=== PATIENT | male | born 1975 | race Caucasian/White ===

== ENCOUNTER → 2016-03-31 | Outpatient (CLI) | payer BC, OTHER ==
--- NOTE | 2016-03-31 12:36 | DI ---
XR WRIST COMPLETE MIN 3VW,03/31/2016 12:18 PM: Clinical History: Left wrist pain Previous Exam: None at this facility. Findings: 3 views the left wrist are obtained, and demonstrate anatomic alignment without fractures. The surrou nding soft tissues are unremarkable. Impression: Normal left wrist.
== END ==
LOC: MOB RAD 12:19
PROVIDERS: ATTEND Physician Assistant
DX: M25.532 Pain in left wrist (principal); W18.09XA Striking against other object with subsequent fall, initial encounter; Y93.89 Activity, other specified; Y92.89 Other specified places as the place of occurrence of the external cause; Y99.0 Civilian activity done for income or pay
CPT/HCPCS: 73110

== ENCOUNTER → 2016-04-09 | Outpatient (CLI) | payer OTHER, BC ==
--- NOTE | 2016-04-10 12:12 | DI ---
MRI LEFT WRIST SCAN, 04/09/2016 8:01 AM: Clinical History: Injury to the wrist. Previous Exam: None at this facility. Technique: Axial, coronal, and sagittal PD; fat saturated PD. There is edema deep to the subcutaneous tissues over the dorsomedial surface of the wrist at the leve l of the proximal row carpal bones and between the extensor digiti minimi and extensor digitorum and extensor indicis tendons at the location where the triquetrotrapezial ligament is situated. Medial an d lateral to this location, the tendon has a normal signal pattern but at the site where there is hyp erintensity in the soft tissues, this ligament is hyperintense consistent with a partial tear or spra in of that ligament. No other volar or dorsal ligamentous abnormality is noted. The flexor and extens or tendons are intact. The triangular fibrocartilage as well as the scapholunate and lunatotriquetral ligaments are normal. Readin. There is hyperintensity in the triquetrotrapezial ligament on the dorsal surface between the exte nsor digiti minimi and the extensor digitorum and extensor indicis tendons are located. This hyperint ensity would be consistent with a partial tear or sprain of that ligament. 2. The remainder of the examination is otherwise normal.
== END ==
LOC: MRI 07:58
PROVIDERS: ATTEND Physician Assistant
DX: S69.92XA Unspecified injury of left wrist, hand and finger(s), initial encounter (principal); S63.592A Other specified sprain of left wrist, initial encounter; M25.532 Pain in left wrist; W19.XXXA Unspecified fall, initial encounter
CPT/HCPCS: 73221

== ENCOUNTER 2016-08-29 21:26 | Emergency (ER) | payer OTHER, BC ==
[2016-08-29 21:35] VITALS: RESP 16; TEMP 97.9
--- NOTE | 2016-08-29 22:10 | PDOC ---
Lower Extremity Injury HPI - General Chief Complaint: Lower Extremity Problem/Injury Stated Complaint: RIGHT KNEE GAVE OUT Date Seen by Provider: 08/29/16 Time Seen by Provider: 21:50 Source: POSITIVE: Patient Exam Limitations: POSITIVE: No limitations Nurse's Notes Reviewed & Considered: Yes - History of Present Illness Initial Comments: The patient is a 41-year-old male who presents to the emergency department with right knee pain. 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 He was assisting lifting the patient when he felt his right knee pop. He subsequently stopped lifting and stepped back allowing other personnel to care for the patient. He states he has pain with bending his knee as well as weightbearing. He has no prior history of problems with his right knee. He states that initially it felt like his knee was going to give out. Currently when he bears weight he has pain however does not feel any instability. Have you received a tetanus shot in the past 10 years?: Yes - Patient Home Medications Home Medications: Home Medications NK [No Home Medications Reported] 08/29/16 - Patient Allergies Allergies/Adverse Reactions: Allergies Allergy/AdvReac Type Severity Reaction Status Date / Time No Known Drug Allergies Allergy NOT Verified 08/29/16 21:28 APPLICABLE Past Medical History - heen HEENT History: Denies History Cardiovascular History: Denies History Respiratory History: Denies History Gastrointestinal History: Denies History Genitourinary History: Denies History Endocrine History: Denies History Musculoskeletal History: Other (please comment) Prosthesis or Implant: No Additional Musculoskeletal History: L KNEE PAIN IN AUGUST 2014 Neurological History: Traumatic Brain Injury Blood Disorders: Denies History Psychiatric History: Denies History Male Reproductive History: Denies History Cancer History: Denies History In Past Year Been Physically Harmed or Verbally Threatened: No History of MDRO: No Tobacco Use: Never Smoker Alcohol Use: Rarely Substance Use Type: None Previous Surgical History: No Anesthesia Reactions: No Malignant Hyperthermia: No Significant Family History: No pertinent family hx Past Medical History Reviewed: Reviewed - No Changes ROS - Limitations ROS Limitations: No Limitations (Review of systems otherwise noncontributory) Lower Ext Complaint Exam - General Appearance General Appearance: POSITIVE: Alert, Cooperative, No Acute Distress - Extremities Lower Extremity: POSITIVE: Other (Examination the right knee reveals no obvious swelling or deformity, he does have some crepitus with passive range of motion primarily over the medial aspect of his knee, no obvious ligamentous instability ) Neurovascular/Tendon: POSITIVE: Sensation Normal, Motor Normal, No Vascular Compromise Lower Ext Complaint Progress - Results Reviewed by me Xrays/CTs/US Reviewed by me: Yes Radiology Findings: X-ray of the right knee reveals no acute findings or fractures - Patient's Progress MDM / ED Course: X-ray does not reveal any obvious fracture. He was placed in an Keith bandage for comfort. He is advised to continue ice and elevation as well as anti- inflammatories. He'll return to the emergency room if he develops increased pain, worsening or change in symptoms. He is advised follow-up with my care or orthopedics in 3-5 days. - Consult Counseled: POSITIVE: Patient, RE: Radiology Results, RE: DX, RE: Need for F/U Patient Care Time - Estimated PCT Patient Care Time (In Minutes): 15 Vital Signs - VS Reviewed Vital Signs Reviewed: Yes Discharge Clinical Impression: Knee strain Discharge Disposition: Discharged to Home Condition: Stable Patient Instructions Given at Discharge: Knee Pain (ED) Additional Instructions: The x-ray of the knee does not show any obvious fracture or any other abnormality. It is possible he may have an injury to her tendon or meniscus or may just be a strain. Recommend Keith wrap for comfort. Recommend ibuprofen 600 mg every 6 hours as needed for pain. Return to the emergency room if increased pain, worsening or change in symptoms. Recommend follow-up in 5-7 days. Follow Up With: ANYA CASTILLO [Primary Care Provider] -
--- NOTE | 2016-08-30 08:31 | DI ---
RIGHT KNEE, 08/29/2016 9:03 PM: Clinical History: Injury. The patient fell. Previous Exam: None at this facility. 3 views are submitted. There is no acute soft tissue, osseous, or joint abnormality. Reading: Normal right knee exam.
== END 2016-08-29 23:00 | disposition home or self-care (01) ==
LOC: ER 21:26
DX: S86.811A Strain of other muscle(s) and tendon(s) at lower leg level, right leg, initial encounter (principal); X50.0XXA Overexertion from strenuous movement or load, initial encounter; Y99.0 Civilian activity done for income or pay
CPT/HCPCS: 73562; 99282